=== PATIENT | male | born 1965 | race Caucasian/White ===

== ENCOUNTER 2016-05-22 22:32 | Emergency (ER) | payer BC, OTHER ==
[2016-05-22] MEDS ORDERED: SODIUM SULAMYD EYE DROPS 15 ML OP ONE ×2 (22:52→23:00)
[2016-05-22] MEDS ORDERED: TETRACAINE 0.5% STERI-UNIT SOL OP STA (22:52)
[2016-05-22] MEDS ORDERED: Acular OPTH SOL OP ONE ×2 (22:52→23:00)
[2016-05-22] MEDS ORDERED: Eye-Stream Solution OP ONE (22:52)
[2016-05-22] MEDS ORDERED: Fluor-I-Strip/Ful-Flo OP ONE ×2 (22:52→23:00)
--- NOTE | 2016-05-22 22:54 | ERPHSYRPT ---
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 PT DENIES ANY VISUAL ACUITY DECREASE, CHEST PAIN, NAUSEA, SHORTNESS OF AIR; ADMITS TO RUBBING HIS RIGHT EYE VIGOROUSLY AFTER EXPOSURE AND RIGHT EYE REDNESS. Allergies/Adverse Reactions: penicillin G Allergy (Mild, Verified 09/10/11 11:58) pt unsure of what happens but does report an allergy to med Home Medications: No Home Meds 09/10/11 [History] Hx Tetanus, Diphtheria Vaccination/Date Given: No Hx Influenza Vaccination/Date Given: No Hx Pneumococcal Vaccination/Date Given: No - Review of Systems Eyes: Eye Redness Respiratory: No Dyspnea Cardiac: No Chest Pain Abdominal/Gastrointestinal: No Nausea, No Vomiting All Other Systems: Reviewed and Negative - Past Medical History Pertinent Past Medical History: Yes Neurological History: No Pertinent History ENT History: No Pertinent History Cardiac History: No Pertinent History Respiratory History: Asthma Endocrine Medical History: No Pertinent History Musculoskeletal History: No Pertinent History GI Medical History: No Pertinent History History: No Pertinent History Psycho-Social History: No Pertinent History Male Reproductive Disorders: No Pertinent History - Past Surgical History Past Surgical History: No - Social History Smoking Status: Never smoker Exposure to second hand smoke: No Drug Use: none Patient Lives Alone: No - Nursing Vital Signs Nursing Vital Signs: Initial Vital Signs Temperature 97.8 F Temperature Source Oral Pulse Rate 78 Respiratory Rate 20 Blood Pressure [Right Arm] 133/70 Pain Intensity 0 - Physical Exam General Appearance: alert Eye Exam: right eye: conjunctival inflammation, corneal abrasion (UPON FLUORESCEIN STAINING THE RIGHT EYE HAS A CORNEAL ABRASION OVER THE IRIS FROM ABOUT 5:00 O'CLOCK TO 7:30 O'CLOCK.), bilateral eye: PERRL, EOMI Ears, Nose, Throat Exam: pharynx normal, moist mucous membranes Neck Exam: normal inspection Respiratory Exam: lungs clear Cardiovascular Exam: normal heart sounds Gastrointestinal Exam: normal bowel sounds Neurologic: alert, cooperative Skin Exam: warm, dry - Course Nursing assessment & vital signs reviewed: Yes Ordered Tests: Active Orders 24 hr Category Date Time Status Jeremy Lens Irrigation STAT Care 05/22/16 22:52 Active Visual Acuity STAT Care 05/22/16 22:52 Active Medication Summary Discontinued Medications Generic Name Dose Route Start Last Admin Trade Name Nacho BARRAGAN Reason Stop Dose Admin Eye Irrigation Solution 15 ml 05/22/16 22:52 05/22/16 23:07 Eye-Stream Solution OP 05/22/16 22:53 15 ml STAT ONE Administration Eye Irrigation Solution Confirm 05/22/16 23:00 Eye-Stream Solution Administered 05/22/16 23:01 Dose 30 ml .ROUTE .STK-MED ONE Fluorescein Sodium 1 mg 05/22/16 22:52 05/22/16 23:07 Dlvrm-S-Yldxi/Ful-Akira OP 05/22/16 22:53 1 mg STAT ONE Administration Fluorescein Sodium Confirm 05/22/16 23:00 Qiiif-B-Zqjpm/Ful-Akira Administered 05/22/16 23:01 Dose 1 mg OP .STK-MED ONE Sodium Chloride Confirm 05/22/16 23:13 Sodium Chloride 0.9% 1000 Ml Administered 05/22/16 23:14 Dose 1,000 mls @ ud .ROUTE .STK-MED ONE Ketorolac Tromethamine 5 ml 05/22/16 22:52 05/22/16 23:08 Acular Opth Marley OP 05/22/16 22:53 5 ml STAT ONE Administration Ketorolac Tromethamine Confirm 05/22/16 23:00 Acular Opth Marley Administered 05/22/16 23:01 Dose 5 ml OP .STK-MED ONE Sulfacetamide Sodium 15 ml 05/22/16 22:52 05/22/16 23:08 Sodium Sulamyd Eye Drops 15 Ml OP 05/22/16 22:53 15 ml STAT ONE Administration Sulfacetamide Sodium Confirm 05/22/16 23:00 Sodium Sulamyd Eye Drops 15 Ml Administered 05/22/16 23:01 Dose 15 ml OP .STK-MED ONE Tetracaine HCl 4 ml 05/22/16 22:52 05/22/16 23:07 Tetracaine 0.5% Steri-Unit Marley OP 05/22/16 22:53 4 ml STAT STA Administration Tetracaine HCl Confirm 05/22/16 23:01 Tetracaine 0.5% Steri-Unit Marley Administered 05/22/16 23:02 Dose 4 ml OP .STK-MED ONE - Departure Time of Disposition: 00:15 Departure Disposition: Home Clinical Impression: CORNEAL ABRASION OF THE RIGHT EYE, CONJUNCTIVITIS OF RIGHT EYE Condition: Fair Critical Care Time: No Referrals: MARY AGGARWAL [Primary Care Provider] - Instructions: Corneal Abrasion Additional Instructions: FOLLOW UP WITH PRIVATE DOCTOR/EYE DOCTOR TOMORROW. PLACE 1 DROP OF ACULAR OPHTHALMIC IN RIGHT EYE EVERY [address] 2 DROPS OF SULFACETAMIDE OPHTHALMIC IN RIGHT EYE THREE TIMES EACH DAY FOR THE NEXT 10 DAYS.
[2016-05-22] MEDS ORDERED: Eye-Stream Solution ONE (23:00)
[2016-05-22] MEDS ORDERED: TETRACAINE 0.5% STERI-UNIT SOL OP ONE (23:01)
[2016-05-22] MEDS ORDERED: Sodium Chloride 0.9% 1000 ML 1,000 ML ONE (23:13)
[2016-05-22 23:32] VITALS: O2SAT 100
[2016-05-23 00:34] VITALS: BP 128/70; PULSE 73
== END 2016-05-23 00:34 | disposition home or self-care (01) ==
LOC: ED 22:32
DX: S05.01XA Injury of conjunctiva and corneal abrasion without foreign body, right eye, initial encounter (principal); H10.9 Unspecified conjunctivitis
CPT/HCPCS: 66999; 99283; 99284; A9270-GY

== ENCOUNTER 2016-06-29 09:56 | Emergency (ER) | payer OTHER ==
[2016-06-29 10:05] VITALS: O2SAT 96
--- NOTE | 2016-06-29 10:39 | ERPHSYRPT ---
- History of Present Illness Time Seen by Provider: 06/29/16 10:32 Source: patient Exam Limitations: no limitations Patient Subjective Stated Complaint: rt shoulder injury Triage Nursing Assessment: states fell and landed on rt shoulder 2 days ago at work. radial pulse presnt. limited rom due to pain. no deformity noted. no other injury. Physician History: The patient is a 51-year-old male with a friend complaining of falling onto his right shoulder while at work 2 days ago. His shoulder is still hurting. He has not worked yesterday or today. He does not go to work for 2 more days. He is right-handed. His past medical history is unremarkable except for a fractured right clavicle years ago. Occurred: days ago (2) Reason for Fall: slipped, fell from standing pos Injuries/Pain Location: upper extremity Loss of Consciousness: no loss of consciousness Quality: aching Severity of Pain-Max: moderate Severity of Pain-Current: moderate Modifying Factors: Improves With: nothing Associated Symptoms (Fall): denies symptoms Allergies/Adverse Reactions: penicillin G Allergy (Mild, Verified 06/29/16 10:05) pt unsure of what happens but does report an allergy to med Home Medications: No Home Meds 1 ea UD 06/29/16 [History] Hx Tetanus, Diphtheria Vaccination/Date Given: Yes Hx Influenza Vaccination/Date Given: No Hx Pneumococcal Vaccination/Date Given: No Immunizations Up to Date: Yes - Review of Systems Constitutional: No Fever, No Chills Eyes: No Symptoms Ears, Nose, & Throat: No Symptoms Respiratory: No Cough, No Dyspnea Cardiac: No Chest Pain, No Edema, No Syncope Abdominal/Gastrointestinal: No Abdominal Pain, No Nausea, No Vomiting, No Diarrhea Genitourinary Symptoms: No Symptoms Musculoskeletal: Fall, Injury Skin: No Rash Neurological: No Dizziness, No Focal Weakness, No Sensory Changes Psychological: No Symptoms Endocrine: No Symptoms Hematologic/Lymphatic: No Symptoms Immunological/Allergic: No Symptoms All Other Systems: Reviewed and Negative - Past Medical History Pertinent Past Medical History: Yes Neurological History: No Pertinent History ENT History: No Pertinent History Cardiac History: No Pertinent History Respiratory History: Asthma Endocrine Medical History: No Pertinent History Musculoskeletal History: No Pertinent History GI Medical History: No Pertinent History History: No Pertinent History Psycho-Social History: No Pertinent History Male Reproductive Disorders: No Pertinent History - Past Surgical History Past Surgical History: No Other Surgical History: bilat clavicle fx as a child--no repair - Social History Smoking Status: Never smoker Exposure to second hand smoke: Yes Drug Use: none Patient Lives Alone: No - Nursing Vital Signs Nursing Vital Signs: Initial Vital Signs Temperature 97.9 F Temperature Source Oral Pulse Rate 55 Respiratory Rate 18 Blood Pressure [Left Arm] 174/91 Pain Intensity 7 - Physical Exam General Appearance: no apparent distress, alert Head Injury: no evidence of injury Eye Exam: PERRL/EOMI ENT Exam: airway nml Neck Exam: normal inspection, No tenderness Respiratory/Chest Exam: normal breath sounds, No chest tenderness, No respiratory distress Cardiovascular Exam: normal heart sounds, regular rate/rhythm Gastrointestinal Exam: soft, No tenderness, No distention, No guarding, No ecchymosis Rectal Exam: not done Back Exam: normal inspection, No vertebral tenderness Extremity Exam: limited range of motion (Evaluation of the right shoulder shows limited range of motion is limited by pain. The deltoid on the right is tender to palpation. There is no obvious bruising or swelling.), pain with movement Neurologic Exam: alert, oriented x 3, cooperative, sensation nml, No motor deficits Skin Exam: normal color, warm, dry SpO2 Interpretation: normal SpO2: 96 Oxygen Delivery: Room Air - Radiology Exams Right Shoulder X-ray Interpretation: Interpreted by me, Negative, No Fracture Right Clavicle X-ray Interpretation: Interpreted by me, Negative, No Fracture Ordered Tests: Active Orders 24 hr Category Date Time Status CLAVICLE Stat Exams 06/29/16 10:03 Taken SHOULDER Stat Exams 06/29/16 10:03 Taken - Progress Progress: unchanged Progress Note: 06/29/16 10:42 The patient was offered an IM Toradol injection. Patient declined. Counseled pt/family regarding: diagnosis, rad results - Departure Time of Disposition: 10:43 Departure Disposition: Home Clinical Impression: Contusion of right shoulder Condition: Stable Critical Care Time: No Additional Instructions: You have a contusion of your right shoulder. You were offered a pain injection in the ER but you declined. Take ibuprofen 800 mg every 8 hours as needed for pain. Also apply ice to the shoulder as needed for pain. You are cleared to work on Friday but if the pain is still significant at that time, follow-up with your local doctor.
--- NOTE | 2016-06-29 10:52 | XRAY ---
Indication: Pain following fall. Comparison: None 3 views of the right shoulder intact with minimal AC degenerative arthropathy and right apical pulmonary calcified granuloma. No other bony, articular, or soft tissue abnormalities.
--- NOTE | 2016-06-29 10:54 | XRAY ---
Indication: Pain following fall. Comparison: None 2 views of the right clavicle demonstrates minimal AC degenerative arthropathy and right apical pulmonary calcified granuloma. No other bony, articular, or soft tissue abnormalities.
[2016-06-29 10:57] VITALS: BP 152/86; PULSE 52
== END 2016-06-29 10:55 | disposition home or self-care (01) ==
LOC: ED 09:56
DX: S40.011A Contusion of right shoulder, initial encounter (principal); W01.0XXA Fall on same level from slipping, tripping and stumbling without subsequent striking against object, initial encounter; Y92.511 Restaurant or cafe as the place of occurrence of the external cause; Y99.0 Civilian activity done for income or pay
CPT/HCPCS: 73000; 73030; 99283

== ENCOUNTER 2016-08-14 11:41 | Emergency (ER) | payer OTHER ==
[2016-08-14] MEDS ORDERED: DUONEB 0.5-3 MG/3 ml Neb IH ONE ×2 (11:47→11:59)
--- NOTE | 2016-08-14 11:50 | ERPHSYRPT ---
- History of Present Illness Time Seen by Provider: 08/14/16 11:43 Source: patient Exam Limitations: no limitations Patient Subjective Stated Complaint: short of breath and sweating Triage Nursing Assessment: patient alert and orientedx3, able to ambulate well, gait is steady, lung sounds clear. pulses equal bilateral radius. Physician History: 51-year-old white male arrives with complaint of sudden onset of the shortness of breath diaphoresis feels like he can't catch his breath symptoms for 15 minutes. He denies any chest pain denies any nausea any vomiting he has no fevers he has not been coughing. Past medical history includes asthma. Past surgical history is negative. Social history patient denies tobacco alcohol or illicit drug use Timing/Duration: today (15 minutes prior to arrival) Severity: moderate Modifying Factors: Improves With: nothing Associated Symptoms: shortness of breath, diaphoresis, No nausea, No vomiting, No abdominal pain, No heartburn, No cough, No chills, No chest pain, No fever, No headaches, No loss of appetite, No malaise, No rash, No syncope, No seizure, No weakness Allergies/Adverse Reactions: penicillin G Allergy (Mild, Verified 06/29/16 10:05) pt unsure of what happens but does report an allergy to med Home Medications: No Home Meds 1 [facility] 06/29/16 [History] Hx Tetanus, Diphtheria Vaccination/Date Given: Yes Hx Influenza Vaccination/Date Given: No Hx Pneumococcal Vaccination/Date Given: No Immunizations Up to Date: Yes - Review of Systems Constitutional: No Fever, No Chills Eyes: No Symptoms Ears, Nose, & Throat: No Symptoms Respiratory: Dyspnea, No Cough, No Cyanosis, No Dyspnea on Exertion (GARAY), No Stridor, No Wheezing Cardiac: No Chest Pain, No Edema, No Syncope Abdominal/Gastrointestinal: No Abdominal Pain, No Nausea, No Vomiting, No Diarrhea Genitourinary Symptoms: No Dysuria Musculoskeletal: No Back Pain, No Neck Pain Skin: No Rash Neurological: No Dizziness, No Focal Weakness, No Sensory Changes Psychological: No Symptoms Endocrine: No Symptoms All Other Systems: Reviewed and Negative - Past Medical History Pertinent Past Medical History: Yes Neurological History: No Pertinent History ENT History: No Pertinent History Cardiac History: No Pertinent History Respiratory History: Asthma Endocrine Medical History: No Pertinent History Musculoskeletal History: No Pertinent History GI Medical History: No Pertinent History History: No Pertinent History Psycho-Social History: No Pertinent History Male Reproductive Disorders: No Pertinent History - Past Surgical History Past Surgical History: No Other Surgical History: bilat clavicle fx as a child--no repair - Social History Smoking Status: Never smoker Exposure to second hand smoke: Yes Drug Use: none Patient Lives Alone: No - Nursing Vital Signs Nursing Vital Signs: Initial Vital Signs Temperature 98 F Temperature Source Oral Pulse Rate 65 Respiratory Rate 20 Blood Pressure [] 152/96 Pain Intensity 0 - Physical Exam General Appearance: no apparent distress, alert Eye Exam: PERRL/EOMI, eyes nml inspection Ears, Nose, Throat Exam: normal ENT inspection, TMs normal, pharynx normal, moist mucous membranes Neck Exam: normal inspection, non-tender, supple, full range of motion Respiratory Exam: normal breath sounds, lungs clear, No respiratory distress Cardiovascular Exam: regular rate/rhythm, normal heart sounds, normal peripheral pulses Gastrointestinal/Abdomen Exam: soft, normal bowel sounds, No tenderness, No mass Back Exam: normal inspection, normal range of motion, No CVA tenderness, No vertebral tenderness Extremity Exam: normal inspection, normal range of motion, pelvis stable Neurologic Exam: alert, oriented x 3, cooperative, normal mood/affect, nml cerebellar function, nml station & gait, sensation nml, No motor deficits Skin Exam: normal color, warm, dry, No rash Lymphatic Exam: No adenopathy SpO2 Interpretation: normal (96%) SpO2: 96 Oxygen Delivery: Room Air - Course Nursing assessment & vital signs reviewed: Yes EKG Interpreted by Me: RATE (156 bpm), Sinus Marshall, NORMAL AXIS, Other (EKG, sinus rhythm 56 bpm, normal axis, Q waves inferior leads, no acute ST or T wave changes noted) - Radiology Exams Chest X-ray Interpretation: Discussed w/ radiologist, Other (chest x-ray: normal heart , lungs and bony thorax) Ordered Tests: Active Orders 24 hr Category Date Time Status EKG-ER Only STAT Care 08/14/16 11:47 Active IV Insertion STAT Care 08/14/16 11:47 Active Pulse Oximetry (ED) STAT Care 08/14/16 11:47 Active CHEST 1 VIEW (PORTABLE) Stat Exams 08/14/16 11:47 Completed CBC W DIFF Stat Lab 08/14/16 12:00 Completed CMP Stat Lab 08/14/16 12:00 Completed TROPONIN Stat Lab 08/14/16 12:00 Completed Respiratory Nebulizer STAT RT 08/14/16 11:47 Active Medication Summary Discontinued Medications Generic Name Dose Route Start Last Admin Trade Name Nacho PRN Reason Stop Dose Admin Albuterol/Ipratropium 3 ml 08/14/16 11:47 08/14/16 12:01 Duoneb 0.5-3 Mg/3 Ml Neb IH 08/14/16 11:48 3 ml STAT ONE Administration Albuterol/Ipratropium Confirm 08/14/16 11:59 Duoneb 0.5-3 Mg/3 Ml Neb Administered 08/14/16 12:00 Dose 3 ml IH .STK-MED ONE Lab/Rad Data: Laboratory Result Diagrams 08/14/16 12:00 08/14/16 12:00 Laboratory Results 08/14/16 08/14/16 Range/Units 12:00 12:00 WBC 6.5 (4.0-10.5) K/mm3 RBC 5.09 (4.1-5.6) M/mm3 Hgb 14.8 (12.5-18.0) gm/dl Hct 44.2 (42-50) % MCV 86.8 (78-100) fl MCH 29.1 (26-32) pg MCHC 33.5 (32-36) g/dl RDW 13.2 (11.5-14.0) % Plt Count 178 (150-450) K/mm3 MPV 10.8 H (6-9.5) fl Gran % 73.3 H (36.0-66.0) % Lymphocytes % 13.5 L (24.0-44.0) % Monocytes % 9.2 (0.0-12.0) % Eosinophils % 3.5 (0.00-5.0) % Basophils % 0.5 (0.0-0.4) % Basophils # 0.03 (0-0.4) Sodium 139 (136-145) mEq/L Potassium 3.9 (3.5-5.1) mEq/L Chloride 103 (98-107) mEq/L Carbon Dioxide 25.0 (21-32) mEq/L Anion Gap 14.9 (5-15) MEQ/L BUN 17 (9-20) mg/dL Creatinine 1.06 (0.55-1.30) mg/dl Estimated GFR > 60 ML/MIN Glucose 114 H (70-110) MG/DL Calcium 9.5 (8.5-10.1) mg/dL Total Bilirubin 0.70 (0.2-1.0) mg/dL AST 45 H (15-37) U/L ALT 111 H (12-78) U/L Alkaline Phosphatase 94 (46-116) U/L Troponin I < 0.017 (0.000-0.056) ng/ml Serum Total Protein 7.9 (6.4-8.2) gm/dL Albumin 4.2 (3.4-5.0) g/dL - Progress Progress: improved Progress Note: 08/14/16 12:43 51-year-old white male with complaint of shortness of breath diaphoresis approximately 15 minutes prior to arrival he felt like he is having some shortness of breath he had no chest pain no nausea no vomiting. Physical examination I really didn't hear any wheezes however patient is feeling much better after receiving a DuoNeb treatment he does have a history of asthma. Labs CBC chemistry essentially normal with the exception of slight elevation of liver enzymes. Troponin is within normal limits. Chest x-ray unremarkable EKG no acute changes Will go ahead and place patient on tapering prednisone and Zithromax. Diagnosis asthma with exacerbation. - Departure Time of Disposition: 12:45 Departure Disposition: Home Clinical Impression: Asthma Qualifiers: Asthma severity: unspecified severity Asthma complication type: with acute exacerbation Qualified Code(s): J45.901 - Unspecified asthma with (acute) exacerbation Condition: Fair Critical Care Time: No Instructions: Asthma -- Adult Additional Instructions: Return home. Use your nebulizers as prescribed your family doctor. Tapering prednisone as prescribed. Zithromax Z-JOCELIN as directed. Follow-up with your family doctor. Return for acute distress or for severe symptoms. Prescriptions: Azithromycin 250 mg [Zithromax 250 MG TABLET] 0 mg PO ZPACK #6 tablet
--- NOTE | 2016-08-14 12:03 | XRAY ---
Indication: Short of breath. Comparison: August 09, 2007. Portable chest again demonstrates normal heart, lungs, and bony thorax.
[2016-08-14 12:08] LABS: BASOPHIL % 0.5 % (0.0-0.4); Eosinophil % 3.5 % (0.00-5.0); Granulocytes % 73.3 % (36.0-66.0); Lymphocytes % 13.5 % (24.0-44.0); Mean Cell Volume 86.8 fl (78-100); Mean Corpuscular Hemoglobin 29.1 pg (26-32); Mean Platelet Volume 10.8 fl (6-9.5); Monocytes % 9.2 % (0.0-12.0); Platelet Count 178 K/mm3 (150-450); Red Blood Count 5.09 M/mm3 (4.1-5.6); Red Cell Distribution Width 13.2 % (11.5-14.0); White Blood Count 6.5 K/mm3 (4.0-10.5)
[2016-08-14 12:36] LABS: ALBUMIN 4.2 g/dL (3.4-5.0); ALKALINE PHOSPHATASE 94 U/L (46-116); ANION GAP 14.9 MEQ/L (5-15); BLOOD UREA NITROGEN 17 mg/dL (9-20); CHLORIDE 103 mEq/L (98-107); Glucose 114 MG/DL (70-110); Potassium 3.9 mEq/L (3.5-5.1); SGOT/AST 45 U/L (15-37); SGPT/ALT 111 U/L (12-78); SODIUM 139 mEq/L (136-145); Total Protein 7.9 gm/dL (6.4-8.2)
[2016-08-14 12:39] LABS: TROPONIN < 0.017 ng/ml (0.000-0.056)
[2016-08-14 12:55] VITALS: BP 145/86; PULSE 84; O2SAT 98
== END 2016-08-14 12:54 | disposition home or self-care (01) ==
LOC: ED 11:41
DX: J45.901 Unspecified asthma with (acute) exacerbation (principal); R06.02 Shortness of breath
CPT/HCPCS: 36415; 71010; 80053; 84484; 85025; 93005; 94640; 99283; 99284; A9270-GY

== ENCOUNTER 2016-08-26 18:50 | Emergency (ER) | payer OTHER ==
--- NOTE | 2016-08-26 19:14 | ERPHSYRPT ---
- History of Present Illness Time Seen by Provider: 08/26/16 19:00 Source: patient Exam Limitations: clinical condition Patient Subjective Stated Complaint: Pt states that he is all "stopped up" and the humidity is making it hard to breathe because of his asthma. Does not take any medications for his asthma at this time. Triage Nursing Assessment: Pt alert and oriented x3. skin pink warm and dry. afebrile. pt does not appear to be in any distress at this time. airway patent. expiratory wheezes noted anterior chest. resp easy and nonlabored Physician History: PATIENT COMPLAINS OF NASAL CONGESTION PAST WEEK. WAS EVALUATED IN EMERGENCY ON FOR BRONCHITIS, TREATED WITH PRESCRIPTIONS ANTIBIOTIC ZITHROMAX AND PREDNISONE. PATIENT ONLY FILLED PRESCRIPTION FOR PREDNISONE, AND BROUGHT THE ZITHROMAX PRESCRIPTION TO EMERGENCY. HE DENIES DYSPNEA, FEVER OR COUGH. Timing/Duration: day(s) Cough Quality/Degree: no cough (NASAL CONGESTION) Modifying Factors: Improves With: nothing Associated Symptoms: nasal congestion Allergies/Adverse Reactions: penicillin G Allergy (Mild, Verified 06/29/16 10:05) pt unsure of what happens but does report an allergy to med Hx Tetanus, Diphtheria Vaccination/Date Given: Yes Hx Influenza Vaccination/Date Given: No Hx Pneumococcal Vaccination/Date Given: No - Review of Systems Constitutional: No Fever, No Chills Eyes: No Symptoms Ears, Nose, & Throat: Nose Congestion Respiratory: No Cough, No Dyspnea Cardiac: No Symptoms, No Chest Pain, No Edema, No Syncope Abdominal/Gastrointestinal: Constipation, No Abdominal Pain, No Nausea, No Vomiting, No Diarrhea Genitourinary Symptoms: No Symptoms, No Dysuria Musculoskeletal: No Symptoms, No Back Pain, No Neck Pain Skin: No Rash Neurological: No Symptoms, No Dizziness, No Focal Weakness, No Sensory Changes Psychological: No Symptoms Endocrine: No Symptoms All Other Systems: Reviewed and Negative - Past Medical History Pertinent Past Medical History: Yes Neurological History: No Pertinent History ENT History: No Pertinent History Cardiac History: No Pertinent History Respiratory History: Asthma Endocrine Medical History: No Pertinent History Musculoskeletal History: No Pertinent History GI Medical History: No Pertinent History History: No Pertinent History Psycho-Social History: No Pertinent History Male Reproductive Disorders: No Pertinent History - Past Surgical History Past Surgical History: No Other Surgical History: bilat clavicle fx as a child--no repair - Social History Smoking Status: Never smoker Exposure to second hand smoke: Yes Drug Use: none Patient Lives Alone: No - Nursing Vital Signs Nursing Vital Signs: Initial Vital Signs Temperature 97.7 F Temperature Source Oral Pulse Rate 71 Respiratory Rate 20 Blood Pressure [Right Arm] 144/98 - Physical Exam General Appearance: no apparent distress, alert Eye Exam: PERRL/EOMI, eyes nml inspection Ears, Nose, Throat Exam: normal ENT inspection, TMs normal, pharynx normal, moist mucous membranes Neck Exam: normal inspection, non-tender, supple, full range of motion Respiratory Exam: normal breath sounds, lungs clear, other (NO WHEEZES OR RHONCHI), No respiratory distress Cardiovascular Exam: regular rate/rhythm, normal heart sounds Gastrointestinal/Abdomen Exam: soft, No tenderness Back Exam: normal inspection, No CVA tenderness, No vertebral tenderness Extremity Exam: normal inspection, normal range of motion Neurologic Exam: alert, oriented x 3, cooperative, normal mood/affect, sensation nml, No motor deficits Skin Exam: normal color, warm, dry, No rash Lymphatic Exam: No adenopathy SpO2 Interpretation: normal SpO2: 97 Oxygen Delivery: Room Air - Progress Counseled pt/family regarding: diagnosis, need for follow-up - Departure Time of Disposition: 19:20 Departure Disposition: Home Clinical Impression: ACUTE SINUSITIS Condition: Stable Critical Care Time: No Additional Instructions: FILL YOUR ANTIBIOTIC PRESCRIPTION ZITHROMAX AND TAKE DIRECTED WHICH WAS PRESCRIBED ON 08/14/16. ALBUTEROL NEBULIZER EVERY 4 HOURS NEEDED. USE OVER THE COUNTER SALINE NASAL SPRAY NEEDED. CONSULT YOUR PRIMARY CARE PHYSICIAN FOR FOLLOWUP IN 1 WEEK. Prescriptions: Albuterol 2.5 mg/3 ml Neb [Proventil 2.5 mg/3 ml Neb] 2.5 mg IH [id number] PRN #30 neb PRN Reason: DIFFICULTY BREATHING
[2016-08-26 19:52] VITALS: BP 162/90; PULSE 68; O2SAT 95
== END 2016-08-26 19:45 | disposition home or self-care (01) ==
LOC: ED 18:50
DX: J01.90 Acute sinusitis, unspecified (principal)
CPT/HCPCS: 99283

== ENCOUNTER 2017-07-25 17:51 | Emergency (ER) | payer OTHER ==
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
[2017-07-25] MEDS ORDERED: TORAdol 30 mg Injection IM ONE (18:12)
[2017-07-25] MEDS ORDERED: TORAdol 30 mg Injection ONE (18:18)
[2017-07-25 19:19] VITALS: BP 148/88; PULSE 80; O2SAT 98
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
== END 2017-07-25 19:15 | disposition home or self-care (01) ==
LOC: ED 17:51
DX: S40.022A Contusion of left upper arm, initial encounter (principal); R51 Headache; M54.2 Cervicalgia; M79.622 Pain in left upper arm; V43.52XA Car driver injured in collision with other type car in traffic accident, initial encounter
CPT/HCPCS: 70450; 72125; 96372; 99284; J1885

== ENCOUNTER 2018-09-02 03:41 | Emergency (ER) | payer MEDICAID, OTHER ==
[2018-09-02 03:51] VITALS: O2SAT 99
[2018-09-02] MEDS ORDERED: PROVENTIL 2.5 MG/3 ML NEB IH ONE (03:51)
[2018-09-02] MEDS ORDERED: DUONEB 0.5-3 MG/3 ml Neb IH ONE (03:53)
[2018-09-02] MEDS ORDERED: DECADRON 10MG INJ. IM ONE (03:57)
--- NOTE | 2018-09-02 04:00 | ERPHSYRPT ---
- History of Present Illness Time Seen by Provider: 09/02/18 03:48 Source: patient Exam Limitations: no limitations Patient Subjective Stated Complaint: patient states was having trouble breathing used fathers inhaler it helped a little but he still feels like he cannot breath Triage Nursing Assessment: pt is alert nad orientedx3, able to ambulate by self , gait is steady, pupils perrla2, lung sounds clear diminished bilateral , pulses equal and strong bialteral radius, skin warm dry and itnact. Physician History: Occasionally around family smokers - not often with SOA - used fathers MBI perior to comming here Allergies/Adverse Reactions: penicillin G Allergy (Mild, Verified 06/29/16 10:05) pt unsure of what happens but does report an allergy to med Hx Tetanus, Diphtheria Vaccination/Date Given: Yes Hx Influenza Vaccination/Date Given: No Hx Pneumococcal Vaccination/Date Given: No Immunizations Up to Date: Yes - Review of Systems Constitutional: No Symptoms Respiratory: Dyspnea Cardiac: No Symptoms Genitourinary Symptoms: No Symptoms All Other Systems: Reviewed and Negative - Past Medical History Pertinent Past Medical History: Yes Neurological History: No Pertinent History ENT History: No Pertinent History Cardiac History: No Pertinent History Respiratory History: Asthma Endocrine Medical History: No Pertinent History Musculoskeletal History: No Pertinent History GI Medical History: No Pertinent History History: No Pertinent History Psycho-Social History: No Pertinent History Male Reproductive Disorders: No Pertinent History - Past Surgical History Past Surgical History: No Other Surgical History: bilat clavicle fx as a child--no repair - Social History Smoking Status: Never smoker Exposure to second hand smoke: Yes Drug Use: none Patient Lives Alone: No - Nursing Vital Signs Nursing Vital Signs: Initial Vital Signs Pulse Rate 62 09/02/18 03:42 Respiratory Rate 26 H 09/02/18 03:42 Blood Pressure 142/76 09/02/18 03:42 O2 Sat by Pulse Oximetry 99 09/02/18 03:42 Pain Scale Pain Intensity 0 - Physical Exam General Appearance: no apparent distress Eye Exam: PERRL/EOMI, eyes nml inspection Ears, Nose, Throat Exam: hearing grossly normal Neck Exam: normal inspection, supple, full range of motion Respiratory Exam: diminished breath sounds, wheezing (mild) Cardiovascular/Chest Exam: normal heart sounds, regular rate/rhythm, normal peripheral pulses, No edema SpO2 Interpretation: normal (97% on intake) SpO2: 99 - Course Nursing assessment & vital signs reviewed: Yes Ordered Tests: Active Orders 24 hr Category Date Time Status Respiratory Therapy Assessment DAILY RT 09/02/18 03:50 Completed Medication Summary Discontinued Medications Generic Name Dose Route Start Last Admin Trade Name Nacho PRN Reason Stop Dose Admin Albuterol Sulfate Confirm 09/02/18 03:51 Proventil 2.5 Mg/3 Ml Neb Administered 09/02/18 03:52 Dose 2.5 mg IH .STK-[facility] ONE Albuterol/Ipratropium 3 ml 09/02/18 03:53 09/02/18 03:58 Duoneb 0.5-3 Mg/3 Ml Neb IH 09/02/18 03:54 3 ml STAT ONE Administration Dexamethasone Sodium Phosphate 8 mg 09/02/18 03:57 09/02/18 04:03 Decadron 10mg Inj. IM 09/02/18 03:58 8 mg STAT ONE Administration Dexamethasone Sodium Phosphate Confirm 09/02/18 04:02 Decadron 10mg Inj. Administered 09/02/18 04:03 Dose 10 mg .ROUTE .[facility] ONE - Progress Progress: improved, re-examined Air Movement: fair Progress Note: Appears to have more element of hyperventilation rather than difficulty moving air; lungs clear with good air exachange. Anxious; drove self to ER so choose not to do anti- anxiety tx as he is otherwise doing well now. 09/02/18 04:24 - Departure Departure Disposition: Home Clinical Impression: SOB (shortness of breath) Condition: Stable Critical Care Time: No Referrals: PB NAVARRO DO [Primary Care Provider] - Instructions: Asthma, Adult (DC) Additional Instructions: Follow up with primary care provider; call later today and let them know how you are doing. Make appointment to be seen for follow up. Return to ER if further shortness of breath developes or if any chest pain.
[2018-09-02] MEDS ORDERED: DECADRON 10MG INJ. ONE (04:02)
[2018-09-02 04:45] VITALS: BP 136/75; PULSE 73
== END 2018-09-02 04:45 | disposition home or self-care (01) ==
LOC: ED 03:41
DX: R06.02 Shortness of breath (principal)
CPT/HCPCS: 36000; 94640; 96372; 99284; J1100; J7609; A9270-GY

== ENCOUNTER 2018-09-12 17:15 | Emergency (ER) | payer MEDICAID ==
--- NOTE | 2018-09-12 17:37 | ERPHSYRPT ---
- History of Present Illness Time Seen by Provider: 09/12/18 17:25 Source: patient Exam Limitations: no limitations Patient Subjective Stated Complaint: Pt stated that he has been working outside all day and feels like he may have gotten dehydrated due to feeling dizzy, started new blood pressures medicine 3 days ago but does not know the name of the med. Triage Nursing Assessment: Pt walked into the ER, pulses normal, vitals wnl, denies pain, PERRL, skin warm and dry Physician History: Working outside today - hot sun; urinated about 2 PM - normal. Needs work note to return to work Friday. Had nausea and vomited 1X earlier. Feels better now. Allergies/Adverse Reactions: penicillin G Allergy (Mild, Verified 09/12/18 17:20) pt unsure of what happens but does report an allergy to med Home Medications: Unobtainable 09/12/18 [History] Hx Tetanus, Diphtheria Vaccination/Date Given: Yes Hx Influenza Vaccination/Date Given: No Hx Pneumococcal Vaccination/Date Given: No - Review of Systems Constitutional: Fatigue, Malaise, No Fever, No Chills Eyes: No Symptoms Ears, Nose, & Throat: No Symptoms Respiratory: No Symptoms Cardiac: No Symptoms Skin: No Symptoms All Other Systems: Reviewed and Negative - Past Medical History Pertinent Past Medical History: Yes Neurological History: No Pertinent History ENT History: No Pertinent History Cardiac History: No Pertinent History Respiratory History: Asthma Endocrine Medical History: No Pertinent History Musculoskeletal History: No Pertinent History GI Medical History: No Pertinent History History: No Pertinent History Psycho-Social History: No Pertinent History Male Reproductive Disorders: No Pertinent History - Past Surgical History Past Surgical History: No Other Surgical History: bilat clavicle fx as a child--no repair - Social History Smoking Status: Never smoker Exposure to second hand smoke: No Drug Use: none Patient Lives Alone: No - Nursing Vital Signs Nursing Vital Signs: Initial Vital Signs Temperature 98.1 F 09/12/18 17:21 Pulse Rate 82 09/12/18 17:21 Blood Pressure 139/90 09/12/18 17:21 O2 Sat by Pulse Oximetry 93 L 09/12/18 17:21 Pain Scale Pain Intensity 0 - Physical Exam General Appearance: no apparent distress Eye Exam: PERRL/EOMI Ears, Nose, Throat Exam: normal ENT inspection, pharynx normal Neck Exam: normal inspection, supple, full range of motion Respiratory Exam: normal breath sounds, lungs clear, airway intact Cardiovascular Exam: regular rate/rhythm, normal heart sounds, normal peripheral pulses, No edema Gastrointestinal/Abdomen Exam: soft, normal bowel sounds Extremity Exam: normal inspection, normal range of motion Neurologic Exam: alert, oriented x 3, cooperative, band manager II-XII nml as tested, normal mood/affect Skin Exam: normal color, warm, dry SpO2 Interpretation: normal SpO2: 93 O2 Delivery: Room Air - Course Nursing assessment & vital signs reviewed: Yes Ordered Tests: Active Orders 24 hr Category Date Time Status IV Insertion STAT Care 09/12/18 17:36 Active BMP Stat Lab 09/12/18 17:36 Completed CBC W DIFF Stat Lab 09/12/18 17:36 Completed Manual Differential NC Stat Lab 09/12/18 17:36 Completed Medication Summary Discontinued Medications Generic Name Dose Route Start Last Admin Trade Name Freq PRN Reason Stop Dose Admin Sodium Chloride 1,000 mls @ 999 mls/hr 09/12/18 17:36 09/12/18 18:00 Sodium Chloride 0.9% 1000 Ml IV 09/12/18 18:36 999 mls/hr .Q1H1M STA Administration Sodium Chloride Confirm 09/12/18 17:38 Sodium Chloride 0.9% 1000 Ml Administered 09/12/18 17:39 Dose 1,000 mls @ ud .ROUTE .STK-MED ONE Lab/Rad Data: Laboratory Result Diagrams 09/12/18 17:36 09/12/18 17:36 Laboratory Results 09/12/18 09/12/18 Range/Units 17:36 17:36 WBC 7.5 (4.0-10.5) K/mm3 RBC 5.57 (4.1-5.6) M/mm3 Hgb 16.7 (12.5-18.0) gm/dl Hct 49.4 (42-50) % MCV 88.7 (78-100) fl MCH 30.0 (26-32) pg MCHC 33.8 (32-36) g/dl RDW 14.5 H (11.5-14.0) % Plt Count 191 (150-450) K/mm3 MPV 11.7 H (6-9.5) fl Sodium 141 (137-145) mmol/L Potassium 4.2 (3.5-5.1) mmol/L Chloride 107 (98-107) mmol/L Carbon Dioxide 24 (22-30) mmol/L Anion Gap 14.3 (5-15) MEQ/L BUN 17 (9-20) mg/dL Creatinine 0.96 (0.66-1.25) mg/dL Estimated GFR > 60.0 ML/MIN Glucose 95 (74-106) mg/dL Calcium 10.4 H (8.4-10.2) mg/dL - Progress Progress: improved (No nausea; reminds me he needs a work note to be able to return to work Friday) - Departure Departure Disposition: Home Clinical Impression: Dehydration Condition: Good Critical Care Time: No Referrals: PB NAVARRO, [Primary Care Provider] - Additional Instructions: Keep well hydrated tomorrow; follow up as needed with primary care. Return to work Friday as you requested. Forms: Work/School Release Form
[2018-09-12] MEDS ORDERED: Sodium Chloride 0.9% 1000 ML 1,000 ML ONE (17:38)
[2018-09-12] MEDS: Sodium Chloride 0.9% 1000 ML 1,000 ML IV STA (18:00)
[2018-09-12 18:13] VITALS: PULSE 77
[2018-09-12 18:32] LABS: Hematocrit 49.4 % (42-50); Hemoglobin 16.7 gm/dl (12.5-18.0); Mean Cell Volume 88.7 fl (78-100); Mean Corpuscular Hgb Concent. 33.8 g/dl (32-36); Mean Platelet Volume 11.7 fl (6-9.5); Platelet Count 191 K/mm3 (150-450); Red Blood Count 5.57 M/mm3 (4.1-5.6); Red Cell Distribution Width 14.5 % (11.5-14.0); White Blood Count 7.5 K/mm3 (4.0-10.5)
[2018-09-12 18:33] VITALS: O2SAT 93
[2018-09-12 18:52] LABS: ANION GAP 14.3 MEQ/L (5-15); BLOOD UREA NITROGEN 17 mg/dL (9-20); CHLORIDE 107 mmol/L (98-107); Calcium 10.4 mg/dL (8.4-10.2); Carbon Dioxide 24 mmol/L (22-30); Creatinine 1 0.96 mg/dL (0.66-1.25); Glucose 95 mg/dL (74-106); Potassium 4.2 mmol/L (3.5-5.1); SODIUM 141 mmol/L (137-145)
[2018-09-12 18:57] VITALS: BP 133/85
[2018-09-12 23:42] LABS: ANISOCYTOSIS 2+; BAND 1 % (0.0-2.0); Lymphocytes 32 % (24-44); Monocyte 6 % (0.0-12.0); Neutrophils 61 % (36.-66.); Platelet Estimate NORMAL (NORMAL); Poikilocytosis 1+; Total Cells Counted 100; Toxic Granulation RARE
== END 2018-09-12 19:04 | disposition home or self-care (01) ==
LOC: ED 17:15
DX: E86.0 Dehydration (principal)
CPT/HCPCS: 36000; 36415; 80048; 85025; 96360; 99284

== ENCOUNTER 2020-03-19 11:18 | Emergency (ER) | payer MEDICAID ==
[2020-03-19] MEDS ORDERED: solu-MEDROL 125 MG IV ONE (11:37)
[2020-03-19] MEDS ORDERED: DUONEB 0.5-3 MG/3 ml Neb IH ONE ×2 (11:37→11:46)
[2020-03-19] MEDS ORDERED: BABY ASPIRIN 81 MG CHEW PO ONE (11:38)
[2020-03-19 11:44] LABS: Absolute Neutrophil Ct (ANC) 5.71 (1.4-6.9); BASOPHIL % 0.3 % (0.0-0.4); Basophil (Absolute #) 0.02 (0-0.4); Eosinophil % 3.1 % (0.00-5.0); Eosinophil (Absolute #) 0.24 (0-0.5); Hematocrit 48.6 % (42-50); Hemoglobin 15.6 gm/dl (12.5-18.0); Lymphocyte (Absolute #) 1.02 (1.0-4.6); Lymphocytes % 13.3 % (24.0-44.0); Mean Cell Volume 89.7 fl (78-100); Mean Corpuscular Hemoglobin 28.8 pg (26-32); Mean Corpuscular Hgb Concent. 32.1 g/dl (32-36); Mean Platelet Volume 10.8 fl (7.5-11.0); Monocyte (Absolute #) 0.69 (0.0-1.3); Neutrophil % 74.3 % (36.0-66.0); Platelet Count 187 K/mm3 (150-450); Red Blood Count 5.42 M/mm3 (4.1-5.6); Red Cell Distribution Width 13.5 % (11.5-14.0); White Blood Count 7.7 K/mm3 (4.0-10.5)
[2020-03-19] MEDS ORDERED: BABY ASPIRIN 81 MG CHEW ONE (11:46)
[2020-03-19] MEDS ORDERED: solu-MEDROL 125 MG ONE (11:47)
[2020-03-19 11:59] VITALS: PULSE 78
[2020-03-19 12:56] LABS: ALBUMIN 4.7 g/dL (3.5-5.0); ALKALINE PHOSPHATASE 100 U/L (38-126); ANION GAP 14.9 MEQ/L (5-15); BLOOD UREA NITROGEN 13 mg/dL (9-20); CHLORIDE 105 mmol/L (98-107); Calcium 9.7 mg/dL (8.4-10.2); Carbon Dioxide 21 mmol/L (22-30); Creatinine 1 0.88 mg/dL (0.66-1.25); EST GLOMERULAR FILTRATION RATE > 60.0 ML/MIN; Glucose 162 mg/dL (74-106); MAGNESIUM 2.1 mg/dL (1.6-2.3); NT PRO BNP 126 pg/mL (0-900); Potassium 3.9 mmol/L (3.5-5.1); SGOT/AST 68 U/L (17-59); SGPT/ALT 124 U/L (0-50); SODIUM 137 mmol/L (137-145); Total Protein 8.1 g/dL (6.3-8.2)
[2020-03-19 13:14] VITALS: BP 167/101; O2SAT 94
--- NOTE | 2020-03-19 13:18 | ERPHSYRPT ---
- History of Present Illness Time Seen by Provider: 03/19/20 11:29 Source: patient Exam Limitations: no limitations Patient Subjective Stated Complaint: Pt began having shortness of breath last night and reports having "a small cold" Triage Nursing Assessment: Pt was brought to the ER by his friend, hypertensive, denies pain, lungs clear, dry unproductive cough, hx of asthma and his mother sprays lysol all over and has many air freshners in the house where the pt lives, doesn't appear to be in any distress Physician History: 54 years old male with history of asthma presented in the ER with chief complaint of cough with some shortness of breath/wheezing off and on for a long time as her mother has been spraying a lot at home to stay away from Covid 19. Last night she sprayed and after that he started to have increased cough nonproductive. Also reports some tightness in the chest with coughing. On presentation in the ER his cough and tired chest tightness is improved. He denies any chest pain or palpitations. No shortness of breath at present. Denies any fever or chills but has some sinus congestion and cold related symptoms recently. Timing/Duration: yesterday, gradual onset, improved Activities at Onset: rest Severity of Dyspnea-Max: moderate Severity of Dyspnea-Current: none Possible Cause: allergen exposure Modifying Factors: Improves With: albuterol inhaler Associated Symptoms: cough, tightness, No chest pain/discomfort, No edema, No fever, No insomnia, No wheezing, No heaviness, No heart racing, No leg swelling, No painful breathing, No productive cough Allergies/Adverse Reactions: penicillin G Allergy (Mild, Verified 03/19/20 11:29) pt unsure of what happens but does report an allergy to med Hx Tetanus, Diphtheria Vaccination/Date Given: Yes Hx Influenza Vaccination/Date Given: No Hx Pneumococcal Vaccination/Date Given: No Travel Risk - International Travel Have you traveled outside of the country in past 3 weeks: No - Coronavirus Screening Are you exhibiting any of the following symptoms?: Yes Symptoms: Shortness of Breath Close contact with a COVID-19 positive Pt in past 14-21 Days: No - Review of Systems Constitutional: No Symptoms Eyes: No Symptoms Ears, Nose, & Throat: Nose Congestion Respiratory: Cough, Wheezing Cardiac: No Symptoms Abdominal/Gastrointestinal: No Symptoms Genitourinary Symptoms: No Symptoms Musculoskeletal: No Symptoms Skin: No Symptoms Neurological: No Symptoms Psychological: No Symptoms Endocrine: No Symptoms Hematologic/Lymphatic: No Symptoms Immunological/Allergic: No Symptoms - Past Medical History Pertinent Past Medical History: Yes Neurological History: No Pertinent History ENT History: No Pertinent History Cardiac History: No Pertinent History Respiratory History: Asthma Endocrine Medical History: No Pertinent History Musculoskeletal History: No Pertinent History GI Medical History: No Pertinent History History: No Pertinent History Psycho-Social History: No Pertinent History Male Reproductive Disorders: No Pertinent History - Past Surgical History Past Surgical History: No Other Surgical History: bilat clavicle fx as a child--no repair, rotator cuff repair - Social History Smoking Status: Never smoker Exposure to second hand smoke: Yes Drug Use: none Patient Lives Alone: No - Nursing Vital Signs Nursing Vital Signs: Initial Vital Signs Temperature 98.4 F 03/19/20 11:19 Pulse Rate 83 03/19/20 11:19 Respiratory Rate 13 03/19/20 11:19 Blood Pressure 168/112 03/19/20 11:19 O2 Sat by Pulse Oximetry 99 03/19/20 11:19 Pain Scale Pain Intensity 4 - Physical Exam General Appearance: no apparent distress, alert, anxiety Eye Exam: PERRL/EOMI, eyes nml inspection Ears, Nose, Throat Exam: hearing grossly normal, nasal congestion, pharyngeal erythema Neck Exam: normal inspection, non-tender, supple, full range of motion Respiratory Exam: normal breath sounds, wheezing Cardiovascular/Chest Exam: normal heart sounds, regular rate/rhythm Abdominal/Gastrointestinal Exam: soft, normal bowel sounds Extremity Exam: non-tender, normal range of motion Neurologic Exam: alert, oriented x 3, cooperative Skin Exam: normal color SpO2 Interpretation: normal SpO2: 94 O2 Delivery: Room Air - Course EKG Interpreted by Me: RATE, Sinus Rhythm, NORMAL AXIS, NORMAL INTERVALS, Q-wave Ordered Tests: Active Orders 24 hr Category Date Time Status Fuel Conversion Technician STAT Care 03/19/20 11:37 Active EKG-ER Only STAT Care 03/19/20 11:37 Active IV Insertion STAT Care 03/19/20 11:37 Active CHEST 1 VIEW (PORTABLE) Stat Exams 03/19/20 12:52 Taken CBC W DIFF Stat Lab 03/19/20 11:37 Completed CMP Stat Lab 03/19/20 11:37 Completed MAGNESIUM Stat Lab 03/19/20 11:37 Completed NT PRO BNP Stat Lab 03/19/20 11:37 Completed TROPONIN Q3H Lab 03/19/20 11:45 Completed TROPONIN Q3H Lab 03/19/20 14:45 Ordered TROPONIN Q3H Lab 03/19/20 17:45 Ordered TROPONIN Q3H Lab 03/19/20 20:45 Ordered TROPONIN Q3H Lab 03/19/20 23:45 Ordered Respiratory Therapy Assessment DAILY RT 03/19/20 11:40 Completed Medication Summary Discontinued Medications Generic Name Dose Route Start Last Admin Trade Name Nacho PRN Reason Stop Dose Admin Albuterol/Ipratropium 3 ml 03/19/20 11:37 03/19/20 11:40 Duoneb 0.5-3 Mg/3 Ml Neb IH 03/19/20 11:38 3 ml STAT ONE Administration Albuterol/Ipratropium Confirm 03/19/20 11:46 Duoneb 0.5-3 Mg/3 Ml Neb Administered 03/19/20 11:47 Dose 3 ml IH .STK-MED ONE Aspirin 324 mg 03/19/20 11:38 03/19/20 11:49 Baby Aspirin 81 Mg Chew PO 03/19/20 11:39 324 mg STAT ONE Administration Aspirin Confirm 03/19/20 11:46 Baby Aspirin 81 Mg Chew Administered 03/19/20 11:47 Dose 324 mg .ROUTE .STK-MED ONE Methylprednisolone Sodium Succinate 125 mg 03/19/20 11:37 03/19/20 11:49 Solu-Medrol 125 Mg IV 03/19/20 11:38 125 mg STAT ONE Administration Methylprednisolone Sodium Succinate Confirm 03/19/20 11:47 Solu-Medrol 125 Mg Administered 03/19/20 11:48 Dose 125 mg .ROUTE .STK-MED ONE Lab/Rad Data: Laboratory Result Diagrams 03/19/20 11:37 03/19/20 11:37 Laboratory Results 03/19/20 03/19/20 03/19/20 Range/Units 11:45 11:37 11:37 WBC 7.7 (4.0-10.5) K/mm3 RBC 5.42 (4.1-5.6) M/mm3 Hgb 15.6 (12.5-18.0) gm/dl Hct 48.6 (42-50) % MCV 89.7 (78-100) fl MCH 28.8 (26-32) pg MCHC 32.1 (32-36) g/dl RDW 13.5 (11.5-14.0) % Plt Count 187 (150-450) K/mm3 MPV 10.8 (7.5-11.0) fl Gran % 74.3 H (36.0-66.0) % Eos # (Auto) 0.24 (0-0.5) Absolute Lymphs (auto) 1.02 (1.0-4.6) Absolute Monos (auto) 0.69 (0.0-1.3) Lymphocytes % 13.3 L (24.0-44.0) % Monocytes % 9.0 (0.0-12.0) % Eosinophils % 3.1 (0.00-5.0) % Basophils % 0.3 (0.0-0.4) % Absolute Granulocytes 5.71 (1.4-6.9) Basophils # 0.02 (0-0.4) Sodium 137 (137-145) mmol/L Potassium 3.9 (3.5-5.1) mmol/L Chloride 105 (98-107) mmol/L Carbon Dioxide 21 L (22-30) mmol/L Anion Gap 14.9 (5-15) MEQ/L BUN 13 (9-20) mg/dL Creatinine 0.88 (0.66-1.25) mg/dL Estimated GFR > 60.0 ML/MIN Glucose 162 H (74-106) mg/dL Calcium 9.7 (8.4-10.2) mg/dL Magnesium 2.1 (1.6-2.3) mg/dL Total Bilirubin 0.50 (0.2-1.3) mg/dL AST 68 H (17-59) U/L ALT 124 H (0-50) U/L Alkaline Phosphatase 100 (38-126) U/L Troponin I < 0.012 (0.000-0.034) ng/mL NT-Pro-B Natriuret Pep 126 (0-900) pg/mL Serum Total Protein 8.1 (6.3-8.2) g/dL Albumin 4.7 (3.5-5.0) g/dL - Progress Progress: improved, re-examined Air Movement: good Progress Note: 03/19/20 13:29 54 years old is evaluated for cough shortness of breath and congestion related to exposure to disinfectant spray. He has no coughing while in the ER and is feeling better. He is given DuoNeb and steroid, on reevaluation his wheezing is improved. EKG normal sinus rhythm with no acute ST elevation. Negative troponins. Chest x-ray did not show any acute cardiopulmonary findings. Grossly unremarkable work-up except for elevated transaminases. Patient does not have any abdominal pain. I believe his symptoms are's allergy related asthma exacerbation from disinfectant spray. He is advised to stay away from it and will give inhaler and steroid to go home. Discussed signs symptoms of worsening needing return to ER which is Standing. Blood Culture(s) Obtained: No Antibiotics given: No Counseled pt/family regarding: lab results, diagnosis, need for follow-up, rad results - Departure Departure Disposition: Home Clinical Impression: Asthma exacerbation Qualifiers: Asthma severity: moderate Asthma persistence: unspecified Qualified Code(s): J45.901 - Unspecified asthma with (acute) exacerbation Condition: Stable Critical Care Time: No Referrals: PB NAVARRO DO [Primary Care Provider] - (1-2 days for reevaluation) Instructions: Asthma, Adult (DC) Additional Instructions: Use inhaler as needed and continue with steroids. Stay away from irritants sprays that cause coughing and shortness of breath. Follow-up with primary care physician for reevaluation. Return to ER for any worsening. Prescriptions: Prednisone 20 mg [Deltasone 20 mg] 60 mg PO DAILY 5 Days #15 tablet Albuterol 8 gm Mdi Hfa [Ventolin Hfa MDI] 8 gm IH Q4H #1 [email or web address]
--- NOTE | 2020-03-19 18:14 | XRAY ---
Indication: Short of breath. Comparison: August 14, 2016 Portable chest again demonstrates normal heart, lungs, and bony thorax.
== END 2020-03-19 13:30 | disposition home or self-care (01) ==
LOC: ED 11:18
DX: J45.901 Unspecified asthma with (acute) exacerbation (principal)
CPT/HCPCS: 36000; 36415; 71045; 80053; 83735; 83880; 84484; 85025; 93005; 93041; 94640; 96374; 99284; J2930; A9270-GY

== ENCOUNTER 2020-05-08 20:55 | Emergency (ER) | payer MEDICAID ==
[2020-05-08 21:30] VITALS: O2SAT 99
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
[2020-05-09 00:52] VITALS: BP 159/87; PULSE 68
--- NOTE | 2020-05-09 09:19 | XRAY ---
Indication: Left-sided headache. Multiple contiguous axial images obtained through the head without contrast. Comparison: July 25, 2017. Normal appearing brain parenchyma, ventricles, and bony calvarium. Visualized paranasal sinuses and mastoid air cells are clear. Impression: Continued normal CT head without contrast exam. Comment: Preliminary interpretation was made by [facility]. No critical discrepancy.
== END 2020-05-09 00:50 | disposition home or self-care (01) ==
LOC: ED 20:55
DX: R51.9 Headache, unspecified (principal)
CPT/HCPCS: 70450; 99284

== ENCOUNTER 2020-05-10 10:04 | Emergency (ER) | payer MEDICAID, OTHER ==
[2020-05-10 10:10] VITALS: O2SAT 98
[2020-05-10] MEDS ORDERED: DECADRON 10MG INJ. PO ONE (10:21)
[2020-05-10] MEDS ORDERED: DECADRON 10MG INJ. ONE (10:23)
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
[2020-05-10 10:46] VITALS: BP 172/98; PULSE 61
== END 2020-05-10 10:51 | disposition home or self-care (01) ==
LOC: ED 10:04
DX: J02.8 Acute pharyngitis due to other specified organisms (principal)
CPT/HCPCS: 99283; J1100

== ENCOUNTER 2020-05-15 19:08 | Emergency (ER) | payer OTHER ==
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
[2020-05-15 20:05] VITALS: BP 126/91; PULSE 63; O2SAT 95
== END 2020-05-15 20:07 | disposition home or self-care (01) ==
LOC: ED 19:08
DX: J02.9 Acute pharyngitis, unspecified (principal)
CPT/HCPCS: 99283

== ENCOUNTER 2020-10-19 08:11 | Emergency (ER) | payer OTHER ==
[2020-10-19] MEDS ORDERED: Zofran 4 MG/2 ML VIAL IV ONE (08:30)
[2020-10-19] MEDS ORDERED: Sodium Chloride 0.9% 1000 ML 1,000 ML IV STA (08:30)
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
[2020-10-19 08:56] LABS: Absolute Neutrophil Ct (ANC) 2.18 (1.4-6.9); Basophil (Absolute #) 0 (0-0.4); Eosinophil (Absolute #) 0 (0-0.5); Hematocrit 51.6 % (42-50); Hemoglobin 17.4 gm/dl (12.5-18.0); Lymphocyte (Absolute #) 0.56 (1.0-4.6); Lymphocytes % 18.1 % (24.0-44.0); Mean Cell Volume 86.7 fl (78-100); Mean Corpuscular Hemoglobin 29.2 pg (26-32); Mean Corpuscular Hgb Concent. 33.7 g/dl (32-36); Mean Platelet Volume 10.7 fl (7.5-11.0); Monocyte (Absolute #) 0.36 (0.0-1.3); Monocytes % 11.6 % (0.0-12.0); Neutrophil % 70.3 % (36.0-66.0); Platelet Count 138 K/mm3 (150-450); Red Blood Count 5.95 M/mm3 (4.1-5.6); Red Cell Distribution Width 14.2 % (11.5-14.0); White Blood Count 3.1 K/mm3 (4.0-10.5)
[2020-10-19 09:04] LABS: ALBUMIN 4.3 g/dL (3.5-5.0); ALKALINE PHOSPHATASE 119 U/L (38-126); AMYLASE 53 U/L (30-110); ANION GAP 17.9 MEQ/L (5-15); BLOOD UREA NITROGEN 19 mg/dL (9-20); CHLORIDE 102 mmol/L (98-107); Calcium 9.1 mg/dL (8.4-10.2); Carbon Dioxide 21 mmol/L (22-30); Creatinine 1 0.85 mg/dL (0.66-1.25); EST GLOMERULAR FILTRATION RATE > 60.0 ML/MIN; Glucose 125 mg/dL (74-106); LIPASE 87 U/L (23-300); Potassium 3.8 mmol/L (3.5-5.1); SGOT/AST 136 U/L (17-59); SGPT/ALT 153 U/L (0-50); SODIUM 137 mmol/L (137-145); Total Protein 7.6 g/dL (6.3-8.2)
[2020-10-19] MEDS ORDERED: Sodium Chloride 0.9% 1000 ML 1,000 ML ONE (09:19)
[2020-10-19] MEDS ORDERED: Zofran 4 MG/2 ML VIAL ONE (09:19)
--- NOTE | 2020-10-19 09:24 | XRAY ---
Indication: Abdomen pain. Positive Covid 19. Comparison: March 19, 2020. Portable chest remains clear. Heart and mediastinal structures within normal limits. Bony thorax intact. No new/acute findings.
--- NOTE | 2020-10-19 09:29 | XRAY ---
Indication: Abdomen and low back pain. Positive Covid 19. Multiple contiguous axial images obtained through the abdomen and pelvis without contrast. Comparison: None Lung bases demonstrates bibasilar dependent atelectasis without focal infiltrate or effusion. Heart is not enlarged. Small hiatal hernia. Noncontrasted stomach and bowel loops nonobstructed normal appendix. No free fluid/air. Diffuse fatty liver. Right mid renal and left upper renal cortical thinning/scarring with benign cortical chunky calcifications. Remaining liver, gallbladder, pancreas, spleen, adrenal glands, kidneys, ureters, and bladder are unremarkable for noncontrast exam. Minimal aortic calcifications without AAA. Osseous structures intact with minimal degenerative changes throughout the thoracic spine. Small fatty right inguinal hernia Impression: 1. Small hiatal hernia, small fatty right inguinal hernia, fatty liver, and bilateral renal cortical thinning/scarring with benign calcifications. 2. Remaining CT abdomen/pelvis without contrast exam is negative.
[2020-10-19 10:44] LABS: Appearance SLIGHTLY CLOUDY (CLEAR); Bacteria RARE /HPF (NEGATIVE); Bilirubin NEGATIVE (NEGATIVE); Blood MODERATE Ery/ul (0-5); Glucose NEGATIVE (NEGATIVE); Ketones SMALL (NEGATIVE); Leukocyte Esterase NEGATIVE (NEGATIVE); Mucus SLIGHT /HPF (NEGATIVE); Nitrite NEGATIVE (NEGATIVE); Protein,Urine Dip >=500 (Negative); Specific Gravity 1.023 (1.005-1.025); Urobilinogen 2 mg/dL (0-1)
[2020-10-19 11:48] VITALS: BP 108/71; PULSE 70; O2SAT 92
[2020-10-19 14:25] LABS: Slide Review 1 YES
== END 2020-10-19 11:50 | disposition home or self-care (01) ==
LOC: ED 08:11
DX: U07.1 COVID-19 (principal); R10.12 Left upper quadrant pain; R10.32 Left lower quadrant pain; R11.2 Nausea with vomiting, unspecified; R05 Cough; R06.02 Shortness of breath
CPT/HCPCS: 36000; 36415; 71045; 74176; 80053; 81001; 82150; 83605; 83690; 85025; 96360; 96374; 99284; J2405

== ENCOUNTER 2020-10-23 17:07 | Emergency (ER) | payer OTHER ==
[2020-10-23] MEDS ORDERED: Sodium Chloride 0.9% 1000 ML 1,000 ML IV STA (17:49)
[2020-10-23] MEDS ORDERED: Sodium Chloride 0.9% 1000 ML 1,000 ML ONE (18:13)
[2020-10-23 18:33] LABS: Hematocrit 50.3 % (42-50); Hemoglobin 16.7 gm/dl (12.5-18.0); Mean Cell Volume 87.3 fl (78-100); Mean Corpuscular Hgb Concent. 33.2 g/dl (32-36); Mean Platelet Volume 10.6 fl (7.5-11.0); Platelet Count 250 K/mm3 (150-450); Red Blood Count 5.76 M/mm3 (4.1-5.6); Red Cell Distribution Width 13.8 % (11.5-14.0); White Blood Count 7.1 K/mm3 (4.0-10.5)
[2020-10-23 18:43] LABS: ALBUMIN 4.1 g/dL (3.5-5.0); ALKALINE PHOSPHATASE 136 U/L (38-126); ANION GAP 16.2 MEQ/L (5-15); BLOOD UREA NITROGEN 22 mg/dL (9-20); CHLORIDE 103 mmol/L (98-107); Calcium 9.1 mg/dL (8.4-10.2); Carbon Dioxide 22 mmol/L (22-30); Creatinine 1 0.85 mg/dL (0.66-1.25); EST GLOMERULAR FILTRATION RATE > 60.0 ML/MIN; Glucose 138 mg/dL (74-106); Potassium 3.3 mmol/L (3.5-5.1); SGOT/AST 86 U/L (17-59); SGPT/ALT 124 U/L (0-50); SODIUM 138 mmol/L (137-145); Total Protein 7.4 g/dL (6.3-8.2)
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
[2020-10-23] MEDS ORDERED: DECADRON 10MG INJ. IV ONE (19:49)
[2020-10-23] MEDS ORDERED: DECADRON 10MG INJ. ONE (20:27)
[2020-10-23 20:46] VITALS: BP 107/69; PULSE 72
[2020-10-23 23:36] VITALS: O2SAT 92
[2020-10-24 05:18] LABS: Eosinophil 2 % (0.00-3.0); Lymphocytes 13 % (24-44); Monocyte 4 % (0.0-12.0); Neutrophils 81 % (36.-66.); Platelet Estimate NORMAL (NORMAL); Total Cells Counted 100
--- NOTE | 2020-10-24 08:36 | XRAY ---
Indication: Positive Covid 19. Comparison: October 19, 2020. Portable chest demonstrates new subtle right mid to lower lung hazy interstitial alveolar opacities without consolidation/large effusion. Remaining heart and lungs unremarkable.
== END 2020-10-23 20:53 | disposition home or self-care (01) ==
LOC: ED 17:07
DX: U07.1 COVID-19 (principal); R19.7 Diarrhea, unspecified; R11.2 Nausea with vomiting, unspecified; R06.02 Shortness of breath
CPT/HCPCS: 36000; 36415; 71045; 80053; 83605; 84484; 85025; 93005; 96374; 99284; J1100

== ENCOUNTER 2022-04-16 18:40 | Emergency (ER) | payer OTHER ==
[2022-04-16] MEDS ORDERED: Sodium Chloride 0.9% 1000 ML 1,000 ML IV STA ×2 (20:27→21:47)
[2022-04-16] MEDS ORDERED: Sodium Chloride 0.9% 1000 ML 1,000 ML ONE ×2 (20:42→21:48)
[2022-04-16 20:51] LABS: Absolute Neutrophil Ct (ANC) 3.62 x10^3/uL (1.4-6.9); BASOPHIL % 0.9 % (0.0-0.4); Basophil (Absolute #) 0.05 x10^3/uL (0-0.4); Eosinophil % 2.4 % (0.00-5.0); Eosinophil (Absolute #) 0.13 x10^3/uL (0-0.5); Hematocrit 46.2 % (42-50); Hemoglobin 15.2 g/dL (12.5-18.0); IMMATURE GRAN # 0.03 x10^3u/L (0.00-0.03); IMMATURE GRAN % 0.6 % (0.00-0.4); Lymphocyte (Absolute #) 1.25 x10^3/uL (1.0-4.6); Lymphocytes % 23.2 % (24.0-44.0); Mean Corpuscular Hemoglobin 28.6 pg (26-32); Mean Corpuscular Hgb Concent. 32.9 g/dL (32-36); Mean Platelet Volume 10.5 fL (7.5-11.0); Monocyte (Absolute #) 0.31 x10^3/uL (0.0-1.3); Monocytes % 5.8 % (0.0-12.0); Neutrophil % 67.1 % (36.0-66.0); Platelet Count 195 x10^3/uL (150-450); Red Blood Count 5.31 x10^6/uL (4.1-5.6); Red Cell Distribution Width 12.8 % (11.5-14.0); White Blood Count 5.4 x10^3/uL (4.0-10.5)
[2022-04-16 20:57] LABS: Appearance Clear (Clear); Bacteria None Seen /HPF (None Seen); Bilirubin Negative (Negative); Blood Negative (Negative); Epithelial Cells None Seen /HPF (None Seen); Glucose, Urine >=1000 mg/dL (Negative); Hyaline Casts NONE SEEN /LPF (0-2); Ketones Trace (Negative); Leukocyte Esterase Negative (Negative); Nitrite Negative (Negative); Protein,Urine Dip Negative (Negative); RBC 0-2 /HPF (0-5); Specific Gravity >=1.030 (1.005-1.030); Urobilinogen 0.2 mg/dL (0.2); WBC 0-2 /HPF (0-5)
[2022-04-16 20:58] LABS: ADD URINE CULTURE? NO (NO)
[2022-04-16 21:05] LABS: ALBUMIN 4.5 g/dL (3.5-5.0); ALKALINE PHOSPHATASE 142 U/L (38-126); ANION GAP 12.8 MEQ/L (5-15); BLOOD UREA NITROGEN 17 mg/dL (9-20); CHLORIDE 100 mmol/L (98-107); Calcium 9.3 mg/dL (8.4-10.2); Carbon Dioxide 28 mmol/L (22-30); Creatinine 1 0.72 mg/dL (0.66-1.25); EST GLOMERULAR FILTRATION RATE > 60.0 ML/MIN; Glucose 435 mg/dL (74-106); Potassium 4.3 mmol/L (3.5-5.1); SGOT/AST 36 U/L (17-59); SGPT/ALT 56 U/L (0-50); SODIUM 137 mmol/L (137-145); Total Protein 7.9 g/dL (6.3-8.2)
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
[2022-04-16 23:47] VITALS: BP 110/77; PULSE 63
[2022-04-16 23:50] VITALS: O2SAT 96
== END 2022-04-16 23:58 | disposition home or self-care (01) ==
LOC: ED 18:40
DX: R73.9 Hyperglycemia, unspecified (principal); R81 Glycosuria; R35.89 Other polyuria; I10 Essential (primary) hypertension; Z28.310 Unvaccinated for COVID-19
CPT/HCPCS: 36000; 36415; 80053; 81001; 82947; 84484; 85025; 93005; 93041; 94760; 99284

== ENCOUNTER 2022-12-16 07:49 | Emergency (ER) | payer OTHER ==
[2022-12-16] MEDS ORDERED: DUONEB 0.5-3 MG/3 ml Neb IH ONE ×2 (07:51→08:23)
[2022-12-16] MEDS ORDERED: solu-MEDROL 125 MG, Sterile H2O 10 ml 2 ML IV ONE ×2 (07:51)
[2022-12-16] MEDS ORDERED: Sodium Chloride 0.9% 1000 ML 1,000 ML IV STA (07:51)
[2022-12-16 07:53] VITALS: TEMP 96.3
[2022-12-16 08:09] LABS: Absolute Neutrophil Ct (ANC) 3.08 x10^3/uL (1.4-6.9); BASOPHIL % 0.9 % (0.0-0.4); Basophil (Absolute #) 0.05 x10^3/uL (0-0.4); Eosinophil % 5.9 % (0.00-5.0); Eosinophil (Absolute #) 0.32 x10^3/uL (0-0.5); Hematocrit 47.3 % (42-50); Hemoglobin 15.5 g/dL (12.5-18.0); IMMATURE GRAN # 0.05 x10^3u/L (0.00-0.03); IMMATURE GRAN % 0.9 % (0.00-0.4); Lymphocyte (Absolute #) 1.53 x10^3/uL (1.0-4.6); Lymphocytes % 28.2 % (24.0-44.0); Mean Cell Volume 88.9 fL (78-100); Mean Corpuscular Hemoglobin 29.1 pg (26-32); Mean Corpuscular Hgb Concent. 32.8 g/dL (32-36); Mean Platelet Volume 10.5 fL (7.5-11.0); Monocyte (Absolute #) 0.39 x10^3/uL (0.0-1.3); Monocytes % 7.2 % (0.0-12.0); Neutrophil % 56.9 % (36.0-66.0); Platelet Count 180 x10^3/uL (150-450); Red Blood Count 5.32 x10^6/uL (4.1-5.6); Red Cell Distribution Width 12.7 % (11.5-14.0); White Blood Count 5.4 x10^3/uL (4.0-10.5)
[2022-12-16] MEDS ORDERED: solu-MEDROL ONE (08:12)
[2022-12-16] MEDS ORDERED: Sodium Chloride 0.9% 1000 ML 1,000 ML ONE (08:12)
[2022-12-16] MEDS ORDERED: Sterile H2O 10 ml IJ ONE (08:12)
[2022-12-16 08:31] LABS: ALBUMIN 4.6 g/dL (3.5-5.0); ANION GAP 17.3 MEQ/L (5-15); BILIRUBIN,TOTAL 0.4 mg/dL (0.2-1.3); Calcium 9.8 mg/dL (8.4-10.2); Creatinine 1 0.91 mg/dL (0.66-1.25); EST GLOMERULAR FILTRATION RATE 99.5 ML/MIN; NT PRO BNPII 44.4 pg/mL (<300); Potassium 4.1 mmol/L (3.5-5.1); Total Protein 7.8 g/dL (6.3-8.2)
[2022-12-16 08:32] VITALS: O2SAT 97
--- NOTE | 2022-12-16 08:41 | XRAY ---
Indication: Short of breath. Comparison: October 23, 2020 Portable chest now demonstrates normal heart, lungs, and bony thorax.
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
[2022-12-16 09:03] VITALS: BP 137/66; PULSE 88; RESP 18
== END 2022-12-16 09:05 | disposition home or self-care (01) ==
LOC: ED 07:49
DX: J45.909 Unspecified asthma, uncomplicated (principal); R06.02 Shortness of breath; I10 Essential (primary) hypertension; Z79.52 Long term (current) use of systemic steroids; Z79.899 Other long term (current) drug therapy; Z28.310 Unvaccinated for COVID-19
CPT/HCPCS: 36000; 36415; 71045; 80053; 83880; 84484; 85025; 93005; 94640; 96374; 99284; J2930; A9270-GY

== ENCOUNTER 2023-01-03 19:12 | Emergency (ER) | payer OTHER ==
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
[2023-01-03] MEDS ORDERED: Sodium Chloride 0.9% 1000 ML 1,000 ML IV STA (19:22)
[2023-01-03] MEDS ORDERED: DUONEB 0.5-3 MG/3 ml Neb IH ONE ×2 (19:22→19:33)
[2023-01-03] MEDS ORDERED: solu-MEDROL 125 MG, Sterile H2O 10 ml 2 ML IV ONE ×2 (19:22)
[2023-01-03 19:34] VITALS: TEMP 96.1
[2023-01-03] MEDS ORDERED: Sodium Chloride 0.9% 1000 ML 1,000 ML ONE (19:45)
[2023-01-03] MEDS ORDERED: solu-MEDROL ONE (19:45)
[2023-01-03] MEDS ORDERED: Sterile H2O 10 ml IJ ONE (19:45)
[2023-01-03 20:53] VITALS: O2SAT 95
[2023-01-03 21:12] VITALS: BP 155/76; PULSE 83; RESP 18
== END 2023-01-03 22:00 | disposition home or self-care (01) ==
LOC: ED 19:12
DX: J45.901 Unspecified asthma with (acute) exacerbation (principal); R06.02 Shortness of breath; I10 Essential (primary) hypertension; Z79.52 Long term (current) use of systemic steroids; Z79.899 Other long term (current) drug therapy; Z28.310 Unvaccinated for COVID-19
CPT/HCPCS: 36000; 36415; 83880; 84484; 94640; 94760; 96360; 96374; 99284; J2930; A9270-GY